=== PATIENT | male | born 1960 | race Caucasian/White ===

== ENCOUNTER 2023-01-22 10:50 | Emergency (ER) | payer OTHER ==
[~2023-01-22] VITALS: Ht 180.3 cm; Wt 68.0 kg
[2023-01-22 11:04] VITALS: BP 125/78
[2023-01-22 11:22] LABS: URINE BILIRUBIN - DIPSTICK NEGATIVE (NEGATIVE); URINE BLOOD DIPSTICK SMALL (NEGATIVE); URINE COLOR YELLOW; URINE GLUCOSE - DIPSTICK NEGATIVE (NEGATIVE); URINE KETONE TRACE mg/dL (NEGATIVE); URINE PH 8.5 (4.5-8.0); URINE PROTEIN - DIPSTICK 30 mg/dL (NEG-TRACE); URINE SPECIFIC GRAVITY <=1.005; URINE UROBILINOGEN - DIPSTICK 0.2 E.U./dL (0.2)
[2023-01-22 11:23] LABS: URINE LEUK ESTERASE MODERATE (NEGATIVE); URINE NITRITE - DIPSTICK POSITIVE (Negative); URINE WBC 20-50 WBC/hpf (0-5)
[2023-01-22 11:24] LABS: URINE BACTERIA MANY hpf; URINE TRIP PHOS CRYSTALS FEW lpf
[2023-01-22] MEDS ORDERED: BACTRIM DS1 TAB PO (11:46)
[2023-01-22 11:49] VITALS: BP 125/78
== END 2023-01-22 12:10 | disposition home or self-care (01) | DRG 690 ==
LOC: ED 10:50 → EDBD 11:57 → ED 11:57
PROVIDERS: Family Medicine
DX: N39.0 Urinary tract infection, site not specified (principal); R33.9 Retention of urine, unspecified; Z87.440 Personal history of urinary (tract) infections

== ENCOUNTER 2023-09-13 17:36 | Emergency (ER) | payer OTHER ==
[~2023-09-13] VITALS: Ht 180.3 cm; Wt 57.1 kg
[~2023-09-13 17:36] MED LIST: BACTRIM DS1 TAB PO
[2023-09-13 18:20] VITALS: BP 132/76
[2023-09-13 18:31] VITALS: BP 141/80
[2023-09-13 18:34] LABS: EOS% 2.9 % (0-8); HEMATOCRIT 34.8 % (39.0-50.0); HEMOGLOBIN 11.9 g/dl (14.0-18.0); IMMATURE GRANULOCYTES 0.2 % (0.0-5.0); LYMPH% 9.1 % (15-41); MEAN CELL VOLUME 93.5 fL CALC (80.0-100.0); MEAN CORPUSCULAR HGB CONC 34.2 g/dL CAL (32.0-36.0); MONO% 8.7 % (2-13); NEUT# 4.04 thou/uL (1.82-7.42); NEUT% 78.1 % (42-76); RED BLOOD COUNT 3.72 mill/uL (4.70-6.10); RED CELL DISTRI WIDTH 11.7 % (11.5-15.5)
[2023-09-13 18:51] LABS: ALBUMIN 4.3 g/dL (3.2-5.0); ALKALINE PHOSPHATASE 70 u/l (38-126); ANION GAP 7 (6-22 (CALC)); BILIRUBIN, TOTAL 0.8 mg/dL (0.2-1.3); BUN 16 mg/dL (8-23); BUN/CREATININE RATIO 27 (12-20 (CALC)); CARBON DIOXIDE 34 mmol/l (22-30); CHLORIDE 97 mmol/l (95-108); CREATININE 0.6 mg/dL (0.7-1.3); GFR FOR AFR.AMER. > 60 ML/MIN (>=60 (CALC)); GFR OTHER RACES > 60 ML/MIN (>=60 (CALC)); POTASSIUM 4.7 mmol/l (3.5-5.1); SGOT/AST 40 u/l (19-48); SODIUM 133 mmol/l (137-146); TOTAL PROTEIN 7.5 g/dL (6.3-8.2)
[2023-09-13] MEDS ORDERED: PREDNISONE50 MG PO (19:08)
[2023-09-13] MEDS ORDERED: VENTOLIN HFA108 MCG PO (19:08)
== END 2023-09-13 19:38 | disposition home or self-care (01) | DRG 179 ==
LOC: ED 17:36
PROVIDERS: Family Medicine
DX: U07.1 COVID-19 (principal); R06.02 Shortness of breath; R06.2 Wheezing; R05.9 Cough, unspecified